=== PATIENT | female | born 1960 | race Two or more races ===

== ENCOUNTER 2022-11-05 03:49 | Day surgery (SDC) | payer BC ==
[2022-11-03 10:22] VITALS: BMI 33.0
[2022-11-05 11:22] VITALS: RESP 16
[2022-11-05] MEDS ORDERED: BUPIVACAINE HCL/PF 0.5% (5MG/ML) 10 ML VIAL ONE (12:49)
[2022-11-05] MEDS ORDERED: LIDOCAINE HCL/PF 1% SDV 5ML VIAL ONE ×2 (12:49→13:31)
[2022-11-05] MEDS ORDERED: ceFAZolin SODIUM 1 GM VIAL IVPB ONE (13:15)
[2022-11-05] MEDS ORDERED: LIDOCAINE HCL 1%, 10 MG/ML (20ML VIAL) INF ONE (13:17)
[2022-11-05] MEDS ORDERED: BUPIVACAINE HCL/PF 0.5% (5 MG/ML) 30 ML VIAL IJ ONE ×2 (14:56)
[2022-11-05] MEDS ORDERED: oxyCODONE HCL 5 MG TABLET ONE (15:34)
[2022-11-05 16:48] VITALS: BP 129/84; PULSE 69; TEMP 98.2
== END 2022-11-05 16:25 | disposition home or self-care (01) ==
LOC: JASU-SURG 03:49
PROVIDERS: ATTEND Podiatrist Foot Surgery
PROC: 0QSN04Z Reposition Right Metatarsal with Internal Fixation Device, Open Approach (ICD-10-PCS; principal; 2022-11-05 13:00)
DX: M20.11 Hallux valgus (acquired), right foot (principal)
CPT/HCPCS: 28299; C1713; 88305-TC; 88311-TC; C1876